=== PATIENT | male | born 1985 | race Caucasian/White ===

== ENCOUNTER 2020-12-12 20:27 | Emergency (ER) | payer MEDICAID ==
[~2020-12-12] VITALS: Ht 167.6 cm; Wt 61.2 kg
--- NOTE | 2020-12-12 20:56 | NUR ---
PT AAOX4. BIBSELF C/O BILATERAL KNEE PAIN X6 WEEKS S/P FALLING OFF ROOF. PT REQUESTING BILATERAL KNEE XRAY. NO ACUTE DISTRESS NOTED. VSS.
[2020-12-12] MEDS ORDERED: KETOROLAC TROMETHAMINE INJ 30 MG/ML VIAL ONE (22:15)
--- NOTE | 2020-12-12 22:23 | NUR ---
Patient discharged to home in stable condition. Written and verbal after care instructions given. Patient verbalizes understanding of instruction. Pt ambulatory with a steady gait
[2020-12-12 22:24] VITALS: BP 130/72
[2020-12-12] MEDS ORDERED: KETOROLAC TROMETHAMINE INJ 60 MG/2 ML VIAL IM ONE (22:30)
== END 2020-12-12 22:24 | disposition home or self-care (01) ==
LOC: ER 20:33
DX: M25.462 Effusion, left knee (principal); M25.461 Effusion, right knee; Z86.73 Personal history of transient ischemic attack (TIA), and cerebral infarction without residual deficits; Z86.19 Personal history of other infectious and parasitic diseases; Z98.890 Other specified postprocedural states; Z59.0 Homelessness
CPT/HCPCS: 73564-TC; J1885

== ENCOUNTER 2022-06-12 22:22 | Inpatient (IN) | payer MEDICAID ==
[~2022-06-12] VITALS: Ht 162.6 cm; Wt 68.0 kg
--- NOTE | 2022-06-12 22:37 | NUR ---
bibra[address] c/o over dose, given 2mg narcan fishing boat captain. PT A/OX3. CONNECTED PT TO POX AND MONITOR. SAFETY MEASURES IN PLACE.
--- NOTE | 2022-06-12 23:03 | NUR ---
BELT LOOP MACHINE OPERATOR AT PT'S BEDSIDE
--- NOTE | 2022-06-12 23:18 | NUR ---
TOBACCO WEIGHER AT PT'S BEDSIDE
--- NOTE | 2022-06-12 23:29 | NUR ---
COVID ANTIGEN AND MRSA SWAB COLLECTED AND SENT TO LAB
--- NOTE | 2022-06-12 23:30 | NUR ---
BELONGINGS LIST DONE AND SENTT O LAB
--- NOTE | 2022-06-12 23:30 | NUR ---
MRSA DONE AND SENT TO LAB
[2022-06-12 23:41] LABS: BASOPHILS % (AUTO) 0.1 % (0.0-2.0); EOSINOPHILS % (AUTO) 0.1 % (0.0-6.0); HEMATOCRIT 40 % (39-51); HEMOGLOBIN 13.2 g/dL (13.5-17.5); LYMPHOCYTES # (AUTO) 0.3 K/uL (0.8-4.8); LYMPHOCYTES % (AUTO) 3.5 % (20.0-44.0); MEAN CORPUSCULAR HGB CONC 33 g/dl (31.0-36.0); MEAN CORPUSCULAR VOLUME 95 fL (80-96); MONOCYTES # (AUTO) 0.3 K/uL (0.1-1.30); MONOCYTES % (AUTO) 3.5 % (2.0-12.0); NEUTROPHILS # (AUTO) 8.9 K/uL (1.8-8.9); NEUTROPHILS % (AUTO) 92.8 % (43.0-81.0); PLATELET COUNT (AUTO) 235 K/uL (150-450); RED BLOOD CELL COUNT(AUTO) 4.22 MIL/uL (4.5-6.0); WHITE BLOOD COUNT (AUTO) 9.6 K/uL (4.3-11.0)
[2022-06-12 23:58] LABS: ALANINE AMINOTRANSFERASE 46 U/L (12-78); ALBUMIN 2.9 g/dL (3.4-5.0); ALCOHOL, BLOOD < 3 mg/dL (0-0); ALKALINE PHOSPHATASE 188 U/L (46-116); ASPARTATE AMINOTRANSFERASE 67 U/L (15-37); BILIRUBIN,DIRECT 0.2 mg/dL (0.0-0.2); BILIRUBIN,TOTAL 0.5 mg/dL (0.2-1.0); CALCIUM, SERUM 8.1 mg/dL (8.5-10.1); CARBON DIOXIDE 25 mmol/L (21-32); CHLORIDE 93 mmol/L (98-107); CREATININE 1.4 mg/dL (0.6-1.3); GLUCOSE 159 mg/dL (74-106); POTASSIUM 3.1 mmol/L (3.5-5.1); SODIUM SERUM 131 mmol/L (136-145); UREA NITROGEN, BLOOD 13 mg/dL (7-18)
[2022-06-12 23:59] LABS: ACETAMINOPHEN < 2 ug/ml (10-30)
[2022-06-13] VITALS (22 sets, daily range): BP systolic 90–113; BP diastolic 45–71
[2022-06-13] MEDS ORDERED: IV NS 0.9% 1,000 ML IV ONE
[2022-06-13] MEDS ORDERED: IV NS 0.9% 1,000 ML BAG IV ONE
--- NOTE | 2022-06-13 00:02 | NUR ---
PT TAKEN TO CT VIA SAIDA
--- NOTE | 2022-06-13 00:15 | NUR ---
PT RETURNED TO ER BED [address]
--- NOTE | 2022-06-13 00:17 | NUR ---
ASSIGNED TO 257
[2022-06-13] MEDS ORDERED: PIPERACILLIN /TAZOBACTAM 3.375 G in IV D5W 50 ML IV ONE (00:30)
[2022-06-13] MEDS ORDERED: PIPERACILLIN /TAZOBACTAM 3.375 G VIAL IV ONE ×2 (00:52→05:25)
[2022-06-13] MEDS ORDERED: ACETAMINOPHEN 325 MG TABLET PO PRN (01:00)
[2022-06-13] MEDS ORDERED: ONDANSETRON HCL/PF 4 MG/2 ML VIAL IVP PRN (01:00)
--- NOTE | 2022-06-13 01:07 | NUR ---
REPORT GIVEN TO ED CREAM GATHERER FOR JAI
--- NOTE | 2022-06-13 01:15 | NUR ---
URINE COLLECTED AND SENT TO LAB
[2022-06-13] MEDS ORDERED: VANCOMYCIN 1 GM VIAL ONE (01:18)
--- NOTE | 2022-06-13 01:25 | NUR ---
ICU/SOCIAL SERVICE LIAISON CHARGE NURSE TOOK REPORT FROM ER NURSE.
[2022-06-13] MEDS ORDERED: VANCOMYCIN 1.5 GM in IV D5W 500ml IV ONE (01:30)
--- NOTE | 2022-06-13 01:34 | NUR ---
PT TRANSFERRED TO [facility] VIA ACLS PROTOCOL. VSS SATTING 98% ON O2 10LPM VIA NRB. ALL BELONGINGS AT PT'S BEDSIDE
[2022-06-13] MEDS: IV NS 0.9% 1,000 ML IV PRN ×2 (01:38→18:10)
[2022-06-13] MEDS: POTASSIUM CL. PREMIX PERIPHER. 50 ML IV SCH ×2 (01:38→02:33)
[2022-06-13] MEDS: PANTOPRAZOLE 40 MG VIAL IV SCH ×2 (01:38→08:14)
[2022-06-13 01:41] LABS: BILIRUBIN,URINE SMALL (NEGATIVE); COLOR,URINE YELLOW (YELLOW); LEUKOCYTE ESTERASE ,URINE NEGATIVE (NEGATIVE); NITRITE, URINE NEGATIVE (NEGATIVE); PROTEIN,URINE 30 mg/dl (NEGATIVE); UGLUCOSE 100 MG/DL mg/dL (NEGATIVE); UROBILINOGEN,URINE 0.2 EU/dL (0.2)
--- NOTE | 2022-06-13 01:45 | NUR ---
ICU/EVENTS DIRECTOR RECIEVED PT FROM ER. PT PLACED ON MONITOR. 10 LITERS SIMPLE MASK WAS PLACED ON PT. SEE FLOWSHEET FOR ASSESSMENT. SEE IV SPREAD SHEET FOR IV'S AND IVP. PT IS ASLEEP. CALL LIGHT WITHIN REACH.
--- NOTE | 2022-06-13 02:20 | NUR ---
ICU/WOOD GRINDER OPERATOR LAB HERE TO DRAW THE L.A REFLEX. L.A 7.8
--- NOTE | 2022-06-13 03:45 | NUR ---
ICU/WEB SOLUTIONS ARCHITECT L.A. REFLEX IS 1.8, PT IS STABLE.
[2022-06-13 04:59] LABS: BASOPHILS % (AUTO) 0.4 % (0.0-2.0); EOSINOPHILS % (AUTO) 0.1 % (0.0-6.0); HEMATOCRIT 39 % (39-51); HEMOGLOBIN 13.1 g/dL (13.5-17.5); LYMPHOCYTES # (AUTO) 0.9 K/uL (0.8-4.8); LYMPHOCYTES % (AUTO) 16.4 % (20.0-44.0); MEAN CORPUSCULAR HGB CONC 34 g/dl (31.0-36.0); MEAN CORPUSCULAR VOLUME 94 fL (80-96); MONOCYTES # (AUTO) 0.3 K/uL (0.1-1.30); MONOCYTES % (AUTO) 4.8 % (2.0-12.0); NEUTROPHILS # (AUTO) 4.1 K/uL (1.8-8.9); NEUTROPHILS % (AUTO) 78.3 % (43.0-81.0); PLATELET COUNT (AUTO) 201 K/uL (150-450); RED BLOOD CELL COUNT(AUTO) 4.16 MIL/uL (4.5-6.0); WHITE BLOOD COUNT (AUTO) 5.3 K/uL (4.3-11.0)
[2022-06-13 05:21] LABS: CALCIUM, SERUM 7.5 mg/dL (8.5-10.1); CREATININE 1.1 mg/dL (0.6-1.3); MAGNESIUM 1.4 mg/dL (1.8-2.4); PHOSPHORUS 2.9 mg/dL (2.5-4.9); POTASSIUM 3.9 mmol/L (3.5-5.1)
[2022-06-13] MEDS ORDERED: ZOSYN IVPB 3.375 G in IV D5W 50ml IV SCH (06:30)
--- NOTE | 2022-06-13 07:30 | NUR ---
RN OPENING NOTE PT OBSERVED IN BED SLEEPING. PT IS ON SIMPLE MASK 10L TOLERATING WELL WITH NO SIGNS OF LABORED BREATHING OR DISTRESS O2 SAT 98%. PT IS ON CLEAR LIQUID DIET AND USES URINAL. IV ACCESS R AC 18G AND LH 20G INFUSING WITH NS @75ML/HR. BED IS LOCKED IN LOWEST POSITION X2 BED RAILS UP, CALL POLLARD IS WITHIN REACH AND ALL HOSPITAL SAFETY PRECAUTIONS ARE IN PLACE. WILL CONTINUE TO MONITOR THIS SHIFT.
[2022-06-13] MEDS: Magnesium 1GM/D5W 100ML PREMIX 100 ML IV SCH ×4 (10:33→14:22)
[2022-06-13] MEDS: IV NS 0.9% 250 ML IV PRN ×2 (10:46→11:33)
[2022-06-13] MEDS: PIPERACILLIN /TAZOBACTAM 3.375 G in IV D5W 100 ML IV SCH ×2 (12:00→21:12)
[2022-06-13] MEDS: VANCOMYCIN HCL 0.75 GM in IV D5W 250 ML IV SCH ×2 (13:16→22:40)
--- NOTE | 2022-06-13 17:30 | NUR ---
RN NOTE TRANSFER THIS NURSE TRANSFERRED WITH PT TO [facility] #120/1. PT STABLE AT THIS TIME AND TRANSFERRED WITH ALL BELONGINGS AND MEDICATIONS.
--- NOTE | 2022-06-13 19:00 | NUR ---
RN CLOSING NOTE PT IS SLEEPING IN BED AT THIS TIME. PT IS ON RA TOLERATING WELL WITH NO SIGNS OF LABORED BREATHING OR DISTRESS O2 SAT 95%. PT IS ON CLEAR LIQUID DIET AND USES URINAL. IV ACCESS R AC 18G AND LH 20G INFUSING WITH NS @75ML/HR. BED IS LOCKED IN LOWEST POSITION X2 BED RAILS UP, CALL POLLARD IS WITHIN REACH AND ALL HOSPITAL SAFETY PRECAUTIONS ARE IN PLACE. WILL ENDORSE TO OVEN OPERATOR NURSE FOR JAI.
[2022-06-14] VITALS: BP 100/57
[2022-06-14 04:00] VITALS: BP 129/77
[2022-06-14] MEDS: PIPERACILLIN /TAZOBACTAM 3.375 G in IV D5W 100 ML IV SCH ×3 (05:19→21:04)
--- NOTE | 2022-06-14 06:24 | NUR ---
END OF SHIFT, PATIENT SLEEPING AT THIS TIME AROUSES TO TACTILE STIMULI, CONTINUE AT ROOM AIR NO SOB/ACUTE DISTRESS DURING THE NIGHT, MAINTAINED O2 WNL, VITAL SINGS STABLE, CONT ON IVF ORDERED AND ANTIBIOTIC, REFUSED BLOOD DRAWN THIS MORNING, WANT BLOOD DRAWN AFTER BREAKFAST, VANCOMYCIN TROUGH FOR THIS AM, WILL ENDORSE NEXT SHIFT TO FOLLOW UP AND ADMINISTER VANCOMYCIN , OTHERWISE NO SIGNIFICANT CHANGE IN CONDITION DURING THE NIGHT, BED LOCKED AND IN LOWEST POSITION, ASSISTED AT ALL TIMES, ALL SAFETY PRECAUTIONS MAINTAINED, CALL LIGHT WITHIN REACH, WILL ENDORSE CONTINUITY OF CARE TO ONCOMING NURSE.
--- NOTE | 2022-06-14 07:33 | NUR ---
HEALTH SAFETY INSTRUCTOR NOTE PATIENT IN BED , RESTING COMFORTABLY AT THIS TIME, ON RA, NO SOB NOTED AT THIS TIME, LT HAND HL INTACT ON ATB AND IVF ORDERED , BED IN LOWEST AND LOCKED POSITION, WILL CONT TO MONITOR
[2022-06-14 08:00] VITALS: BP 135/88
[2022-06-14] MEDS: PANTOPRAZOLE 40 MG TABLET.DR PO SCH (08:52)
[2022-06-14 09:51] LABS: BASOPHILS % (AUTO) 0.2 % (0.0-2.0); HEMATOCRIT 38 % (39-51); HEMOGLOBIN 12.6 g/dL (13.5-17.5); LYMPHOCYTES # (AUTO) 0.7 K/uL (0.8-4.8); MEAN CORPUSCULAR HGB CONC 33 g/dl (31.0-36.0); MEAN CORPUSCULAR VOLUME 94 fL (80-96); MONOCYTES # (AUTO) 0.4 K/uL (0.1-1.30); MONOCYTES % (AUTO) 5.5 % (2.0-12.0); NEUTROPHILS # (AUTO) 6.8 K/uL (1.8-8.9); NEUTROPHILS % (AUTO) 84.3 % (43.0-81.0); PLATELET COUNT (AUTO) 214 K/uL (150-450); RED BLOOD CELL COUNT(AUTO) 4.02 MIL/uL (4.5-6.0); WHITE BLOOD COUNT (AUTO) 8.1 K/uL (4.3-11.0)
--- NOTE | 2022-06-14 09:56 | NUR ---
SAFETY AIDE NOTE PER NAHEED HUTCHINS SENIOR ENGINEERING ASSOCIATE OK TO START SOFT DIET
[2022-06-14 10:00] LABS: CALCIUM, SERUM 7.7 mg/dL (8.5-10.1); CREATININE 0.9 mg/dL (0.6-1.3); MAGNESIUM 1.8 mg/dL (1.8-2.4); PHOSPHORUS 1.4 mg/dL (2.5-4.9); POTASSIUM 3.5 mmol/L (3.5-5.1)
[2022-06-14] MEDS: VANCOMYCIN HCL 0.75 GM in IV D5W 250 ML IV SCH (10:38)
[2022-06-14] MEDS: ENOXAPARIN SODIUM 40 MG/0.4 ML DISP.SYRIN SQ SCH (10:38)
[2022-06-14 12:00] VITALS: BP 140/85
[2022-06-14] MEDS ORDERED: K PHOS NEUTRAL 250 MG TABLET PO ONE (12:30)
--- NOTE | 2022-06-14 12:30 | NUR ---
UI ENGINEER NTE ABLE TO EAT SOFT DIET ,NOT IN DISTRESS
[2022-06-14] MEDS ORDERED: VANCOMYCIN 1 GM in IV D5W 250 ML IV SCH (14:00)
[2022-06-14] MEDS: IV NS 0.9% 1,000 ML IV PRN (15:19)
--- NOTE | 2022-06-14 15:51 | NUR ---
RESIDENCE LIFE COORDINATOR NOTE RESTING COMFORTABLY ,ON IV ATB AND IVF WILL F\U
[2022-06-14 16:00] VITALS: BP 141/93
--- NOTE | 2022-06-14 16:30 | NUR ---
MS RN NOTE HL REMOVED , DRY DRESSING APPLIED, INSTRUCTION GIVEN AGAIN ABOUT F\U PRIMARY CARE DOCTOR AT [facility],WENT HOME WITH STABLE CONDITION, FRIEND ADELE PICK HIM UP ,BELONGING CHECKED , WENT TO LOBBY WITH NURSE BY WALKING
--- NOTE | 2022-06-14 19:04 | NUR ---
MS RN NOTE PATIENT IN BED , ALL NEEDS ATTENDED,ON IVF ORDERED,, ON IVF ORDERED, NOT IN DISTRESS ,NO SOB NOTED ON RA ,SAFETY MEASURE PROVIDED, WILL CONT TO MONITOR
[2022-06-14 20:00] VITALS: BP 148/87
[2022-06-14] MEDS: VANCOMYCIN 1 GM in IV D5W 250 ML IV SCH (23:15)
[2022-06-15 04:00] VITALS: BP 141/84
[2022-06-15] MEDS: PIPERACILLIN /TAZOBACTAM 3.375 G in IV D5W 100 ML IV SCH (05:27)
[2022-06-15] MEDS: VANCOMYCIN 1 GM in IV D5W 250 ML IV SCH (06:40)
--- NOTE | 2022-06-15 07:04 | NUR ---
END OF SHIFT, PATIENT SLEEPING AT THIS TIME AROUSES TO TACTILE STIMULI, CONTINUE AT ROOM AIR NO SOB/ACUTE DISTRESS DURING THE NIGHT, MAINTAINED O2 WNL, CONT ON IVF ORDERED AND ANTIBIOTIC, OTHERWISE NO SIGNIFICANT CHANGE IN CONDITION DURING THE NIGHT, BED LOCKED AND IN LOWEST POSITION, ASSISTED AT ALL TIMES, ALL SAFETY PRECAUTIONS MAINTAINED, CALL LIGHT WITHIN REACH, WILL ENDORSE CONTINUITY OF CARE TO ONCOMING NURSE.
[2022-06-15 07:08] LABS: BASOPHILS % (AUTO) 0.3 % (0.0-2.0); EOSINOPHILS % (AUTO) 2.5 % (0.0-6.0); HEMATOCRIT 37 % (39-51); HEMOGLOBIN 12.3 g/dL (13.5-17.5); LYMPHOCYTES # (AUTO) 0.6 K/uL (0.8-4.8); LYMPHOCYTES % (AUTO) 13.4 % (20.0-44.0); MEAN CORPUSCULAR HGB CONC 33 g/dl (31.0-36.0); MEAN CORPUSCULAR VOLUME 93 fL (80-96); MONOCYTES # (AUTO) 0.4 K/uL (0.1-1.30); MONOCYTES % (AUTO) 7.7 % (2.0-12.0); NEUTROPHILS # (AUTO) 3.7 K/uL (1.8-8.9); NEUTROPHILS % (AUTO) 76.1 % (43.0-81.0); PLATELET COUNT (AUTO) 217 K/uL (150-450); RED BLOOD CELL COUNT(AUTO) 3.95 MIL/uL (4.5-6.0); WHITE BLOOD COUNT (AUTO) 4.8 K/uL (4.3-11.0)
--- NOTE | 2022-06-15 07:20 | NUR ---
RN OPENING NOTES RECEIVED PATIENT IN BED AWAKE, A/O X4, VERBALLY RESPONSIVE. NO SIGNS OF ACUTE DISTRESS NOTED. ON ROOM AIR TOLERATING WELL. DENIES ANY PAIN OR DISCOMFORT AT THIS TIME. NOTED WITH IV ACCESS ONRIGHT FA, SALINE LOCKED AND LEFT HAND WITH IV ABX ZOSYN INFUSING WELL. SAFETY MEASURE IN PLACE. BED IN LOWEST AND LOCKED POSITION. SIDE RAILS UP X2, CALL LIGHT PLACED WITHIN EASY REACH. WILL CONTINUE TO MONITOR PATIENT.
[2022-06-15 07:36] LABS: CALCIUM, SERUM 8.2 mg/dL (8.5-10.1); CREATININE 0.9 mg/dL (0.6-1.3); PHOSPHORUS 1.8 mg/dL (2.5-4.9); POTASSIUM 3.2 mmol/L (3.5-5.1)
[2022-06-15] MEDS: PANTOPRAZOLE 40 MG TABLET.DR PO SCH (08:26)
[2022-06-15] MEDS: ENOXAPARIN SODIUM 40 MG/0.4 ML DISP.SYRIN SQ SCH (08:30)
[2022-06-15] MEDS ORDERED: K PHOS NEUTRAL 250 MG TABLET PO ONE (10:00)
[2022-06-15] MEDS ORDERED: POTASSIUM CHLORIDE 20 MEQ TAB.PRT.SR PO SCH (10:00)
--- NOTE | 2022-06-15 10:47 | NUR ---
SS consult: SS consult requested for homelessness & drug use. The pt. is a 36-year-old male admitted to [facility] due to opioid OD. Per EMR, pt. was administered 2 mg of Narcan. The pt. is Alert & Oriented x4 and makes piercing eye contact. The pt. appears unkempt, restless, and remained cooperative throughout interview. Pt. has elevated mood and affect. The pt.s speech & thought process are WNL. Pt. denies current SI/HI and denies current hallucinations. SW explored pt.s Hx. of mental health. Pt. states he has been diagnosed with schizoaffective disorder in the past and was prescribed Seroquel. However, pt. boss does not take this anymore. SW explored pt.s living situation. Pt. states he is currently experiencing homelessness and has an encampment on [employer]. SW explored pt.s drug & ETOH use. Pt. states this was the first time he used fentanyl, and uses Alcohol, Cannabinoids and Meth often. forestry worker provided support with motivational interviewing, education regarding opioid dependence, brief intervention, and referral to treatment. SW provided pt. with addiction resources and MAT resources: [facility]: [address] [place] [address] Intake hours: 5:45am9:00am, walk-ins Monday, Monday, [facility]: [address] [place] [address] Intake hours: 5:45am12:30pm, Monday and [facility]: [address] [place] [address] Intake hours: 8:00am2:00pm, Monday through Monday Pt. accepted resources. Pt. also stated he does not receiv food stamps and general relief. Patient states he has not received prior treatment for opioid dependence. Pt. states he lacks a support system. Patient appears to be at the preparation phase of change with substance dependence. Plan: Pt. states he will return to his encampment on [employer]. Patient signed homeless waiver & it was placed in the pt.s chart. LUCILLE provided pt. with bus tap card and homeless resources, and he accepted them: Year-round shelters: [place] [facility] [address] [place] [address] ; [facility] [address] [facility] [place] [address]; [place] [facility] [address] [facility] [address] Hygiene: [facility]: [address] [place] ; [facility] [address] [facility] ; [facility] [address] [facility] [place] . Food Resources: [facility]- [address] [place]; Meet Each Need with Dignity ([facility]) [address] [facility]; [facility] [address] [facility]; [facility] [address] [facility]. Mental Health resources provided: [facility] [address] [place], [place] [address] ; [facility] [address] [facility] [address], [place], [place] [id number] ; [facility] [address] [place], [place] [phone] ; [facility] [place], [place] [address] Healthcare Clinics: [facility] [address] [facility], [address] [place]. [place] ; [facility] [address] [place] [address]; [facility] [address] [facility]. [place] [phone] Counseling--Outpatient [facility] [address], [address] [place], [place] [id number] (Specializes in in-depth psychotherapy for emotional distress: anxiety, depression, interpersonal conflicts, life transitions, childhood abuse) [facility] [address] [place], [place] [address] (Assist with solving problem marital difficulties, separation & divorce, aging parents, & grief, chronic & terminal illness) [facility] [address] [place], [place] [phone] (Deal with loss & grief, anxiety, marital difficulties) Homebound/Mental Health Services [address] [facility] [address] [place], [place] [address] (Provide in-home mental services to people who are incapable of leaving their homes) [facility] Elder[facility] [address] [place] [address] [facility] [address] [place] [address] PSYCHIATRIC OUTPATIENT SERVICES [facility] Partial Hospitalization and Intensive Outpatient Program (Managed Care and [place] Only)[address] [facility] [phone] [facility] Partial Hospitalization and Outpatient [id number] [place], [place] [phone] [facility] [place] Rap[address] [facility] [address] [place], [place] [phone] [facility] Partial Hospitalization and Outpatient [id number] [place], [phone] Substance Abuse resources provided included: [facility] Substance Abuse Self-Helpline (SAS) ; [facility] [address] [facility] [place] [address] ; [facility] [address] [facility] [address] ; [facility] [address] [facility] [address] ; [address] [place] [phone] ; [facility] [address] [facility] [address] ; [facility] [address] [facility] [phone] ; [facility] Substance Abuse Helpline(SAS)-[facility] ; [facility] ; [facility] [place]; [facility]; [facility] [place]; [facility] Khanh Baltazar; [facility]; [facility]; [facility] [place]; [facility], [facility]. Kristyn Aceves; Alcoholics Anonymous -SFV; Ly-Goun-Uxzkjat ; Marijuana Anonymous -[facility]; Narcotics Anonymous www.na.org;
--- NOTE | 2022-06-15 11:01 | NUR ---
RN NOTES CHECKER DUMP GROUNDS ERNESTINA NOTIFIED THE GUILLOTINE TRIMMER THAT PATIENT WANTS TO BE DISCHARGED ALREADY. WENT TO PATIENT ROOM AND PER PATIENT HE WANTS TO LEAVE THE HOSPITAL ALREADY AND DOESN'T WANT TO WAIT FOR THE DOCTOR. HE SAID HE'LL BE GOING BACK TO HIS E[facility]AMPM[facility] IN [facility]. DR. ROBINA HERNANDEZ MADE AWARE BY BRAYDEN SLAUGHTER. PER MD IF PATIENT WANTS TO GO , OK TO D/C AMA. PATIENT SIGNED AMA FORM @1045. EXPLAINED RISKS AND BENEFITS OF LEAVING AMA. PATIENT VERBALIZES UNDERSTANDING. ALL BELONGINGS ACCOUNTED FOR INCLUDING PATIENT'S MONEY. VALUABLE FORM DENNIS BY PATIENT. IV ACCESS REMOVED, NO BLEEDING NOTED. PRESSURE DRESSING APPLIED TO SITES. ARM NAME BAND REMOVED. PATIENT LEFT THE UNIT @1053 AMBULATORY. ACCOMPANIED PATIENT TO THE LOBBY. LUCILLE DO GAVE PATIENT TAP CARD FOR TRANSPORTATION. BRAYDEN AND AWARE OF DISCHARGE.
== END 2022-06-15 10:54 | disposition left against medical advice (07) | DRG 812 ==
LOC: ER 22:27 → ICU 06-13 00:20 → TELE1 06-13 17:37 → MEDSG1 06-14 13:33
PROVIDERS: ADMIT Nurse Practitioner Acute Care
DX: T40.2X1A Poisoning by other opioids, accidental (unintentional), initial encounter (principal); J96.01 Acute respiratory failure with hypoxia; N17.0 Acute kidney failure with tubular necrosis; J69.0 Pneumonitis due to inhalation of food and vomit; A41.9 Sepsis, unspecified organism; G92.8 Other toxic encephalopathy; E44.0 Moderate protein-calorie malnutrition; Z20.822 Contact with and (suspected) exposure to COVID-19; Z86.718 Personal history of other venous thrombosis and embolism; Z86.19 Personal history of other infectious and parasitic diseases; Z59.00 Homelessness unspecified; E88.09 Other disorders of plasma-protein metabolism, not elsewhere classified; Z53.29 Procedure and treatment not carried out because of patient's decision for other reasons; E83.42 Hypomagnesemia; E87.6 Hypokalemia; E87.1 Hypo-osmolality and hyponatremia; J70.2 Acute drug-induced interstitial lung disorders; T50.7X5A Adverse effect of analeptics and opioid receptor antagonists, initial encounter; D64.9 Anemia, unspecified; Y92.89 Other specified places as the place of occurrence of the external cause
CPT/HCPCS: 36415; 70450-TC; 71045-TC; 71250-TC; 72125-TC; 80048-TC; 80061-TC; 80076-TC; 80202-TC; 83605-TC; 83735-TC; 84100-TC; 84484-TC; 85025-TC; 85730-TC; 87040-TC; 87081-TC; 87086-TC; 94799-TC; C9113; G0378; G0480; J1650; J2543; J3370; J3475; J3480; J7030; J7050; J7060